=== PATIENT | male | born 1950 | race Caucasian/White ===

== ENCOUNTER → 2020-01-01 | Outpatient (CLI) | payer OTHER | LOC: SJCVC 14:04 | DX: I48.91 Unspecified atrial fibrillation (principal); I45.10 Unspecified right bundle-branch block; R94.31 Abnormal electrocardiogram [ECG] [EKG]; I25.10 Atherosclerotic heart disease of native coronary artery without angina pectoris; I82.403 Acute embolism and thrombosis of unspecified deep veins of lower extremity, bilateral; D68.59 Other primary thrombophilia; E78.00 Pure hypercholesterolemia, unspecified; D68.2 Hereditary deficiency of other clotting factors; Z79.899 Other long term (current) drug therapy ==